=== PATIENT | male | born 1995 | race American Indian/Alaskan Native ===

== ENCOUNTER 2017-11-24 19:13 | Emergency (ER) | payer MEDICAID, OTHER, SELFPAY ==
[2017-11-24 19:21] VITALS: BP 113/67; PULSE 80; RESP 18; TEMP 37.1; O2SAT 98; BMI 29.0
--- NOTE | 2017-11-24 20:10 | PC.NURSE ---
Patient had tonsilectoy a week and half ago. started bleeding a couple hours ago. clot visible in throat.
--- NOTE | 2017-11-24 21:26 | ED_ITS ---
HPI - URI/Sore Throat General Chief Complaint: Upper Respiratory Symptoms Stated Complaint: SAYS SPITTING UP BLOOD Time Seen by Provider: 11/24/17 19:43 Source: patient and family Mode of arrival: ambulatory Limitations: no limitations History of Present Illness HPI Narrative: Patient is a 22-year-old male presents with spitting up blood. He had a tonsillectomy last week. This evening he had a piece of fried bread and started bleeding afterwards. It is intermittent it was initially stopped in the waiting room and has now restarted he is obviously spitting up blood and has a whole bowl full. He is able to talk and manage his secretions. Related Data Home Medications Medication Instructions Recorded Confirmed ibuprofen 200 mg PO TID PRN 11/24/17 11/24/17 Previous Rx's Medication Instructions Recorded meloxicam [Mobic] 7.5 mg PO BIDCC PRN #20 tab 04/24/16 doxycycline hyclate 100 mg PO Q12H #20 cap 10/17/16 Allergies Allergy/AdvReac Type Severity Reaction Status Date / Time No Known Drug Allergies Allergy Verified 11/24/17 19:24 Review of Systems Review of Systems All systems reviewed & are unremarkable except as noted in HPI and below Constitutional Denies chills, Denies fever(s), Denies lethargy and Denies weakness ENT Ears, Nose, Mouth, and Throat: Reports system reviewed and no additional complaints, except as docu Cardiovascular Denies syncope, Denies lightheadedness and Denies palpitations Respiratory Denies hemoptysis, Denies excessive phlegm production and Denies stridor Gastrointestinal Gastrointestinal: Denies abdominal pain, Denies change in bowel habits, Denies diarrhea, Denies nausea and Denies vomiting Neurologic Denies syncope and Denies weakness Endocrine Denies palpitations Hematologic/Lymphatic Denies easy bleeding and Denies easy bruising [facility] History History of tonsillectomy and adenoidectomy (Acute) Social History Smoking Status: Current every day smoker Exam Initial Vital Signs Initial Vital Signs: Vital Signs Temperature 98.7 F 11/24/17 19:21 Pulse Rate 80 11/24/17 19:21 Respiratory Rate 18 11/24/17 19:21 Blood Pressure 113/67 11/24/17 19:21 Pulse Oximetry 98 11/24/17 19:21 Const General: cooperative Nutritional Appearance: average body habitus Orientation: alert, awake and oriented x3 Other: Sitting upright in bed spitting up blood HENMT Mouth: No muffled voice Throat: uvula midline, no peritonsillar masses, posterior oropharynx abnormal, tonsils absent (Bleeding noted on the left, he is able to manage his own secretions) and no uvular edema Resp Effort & Inspection: normal respiratory effort, able to speak in complete sentences, no respiratory distress, no stridor, not tachypneic and no tripod positioning Auscultation: clear to auscultation bilaterally Cardio Rhythm: regular rhythm Heart Sounds: S1 normal and S2 normal Neuro General: alert, awake and oriented x3 Course Hospital Course: Patient rinsed with cold water site noted to be on the left Afrin and cotton ball applied however still bleeding. Dr. Cabrera at bedside to further manage patient. He is able to get the bleeding to stop with silver nitrate. Patient will follow up as needed. Consultations Consultation #1: Dr. Cabrera consult in regards to of post tonsillectomy bleeding. Recommend Afrin and cotton ball is site of bleeding can be identified he will be in the ED for evaluation. Vital Signs - 8 hr 11/24/17 19:21 11/24/17 21:37 Temperature 98.7 F Pulse Rate 80 79 Respiratory Rate 18 15 Blood Pressure 113/67 115/72 Pulse Oximetry 98 MDM - URI/Sore Throat MDM Narrative Medical decision making narrative: Posttonsillectomy hemorrhage now under control. Patient is not dizzy lightheaded or short of breath. Discharge Plan Departure Patient Disposition: Home, Self-Care Clinical Impression: Hemorrhage following tonsillectomy and adenoidectomy Discharge Date/Time: 11/24/17 21:39 Interventions: ED Discharge Assessment Last Done: 11/24/17 21:37 Instructions: DI for Tonsillectomy-Adult Activity Restrictions/Additional Instructions: *You have been diagnosed with postoperative bleeding *What to do: No harder sharp food, liquids and soft foods *Take medications as directed *Follow up with your primary care provider in 2-3 days, follow up with ENT, Dr. Cabrera for Dr. Mccormick next week *Return to ER if you should have increased bleeding or any new, worsening or concerning symptoms Prescriptions: No Action meloxicam [Mobic] 7.5 MG tablet 7.5 mg PO BIDCC PRNQty: 20 RF: 0 doxycycline hyclate 100 MG capsule 100 mg PO Q12H Qty: 20 RF: 0 ibuprofen 200 mg Capsule 200 mg PO TID PRN (Reason: Pain, Moderate) RF: 0 Referrals: Riley Mccormick MD [Physician] - Phuc Cabrera MD [Physician] -
[2017-11-24 21:37] VITALS: BP 115/72; PULSE 79; RESP 15
--- NOTE | 2017-11-25 04:26 | CONS_ITS ---
DATE OF SERVICE: 11/24/2017 CHIEF COMPLAINT: Bleeding, POD #9, status post tonsillectomy. HISTORY OF PRESENT ILLNESS: A 22-year-old male underwent uneventful tonsillectomy by Dr. Abel Mccormick, 11/2014, with prior recurrent left peritonsillar abscess as the indication. Healing evidently was uneventful until 3 p.m. this afternoon, spontaneous significant bleeding, possibly 1-2 cups of bright red blood. He presented to [facility] emergency room. Additional bleeding intermittently there. I was called for evaluation. Otherwise, pain is controlled. No other ENT complaints. He admits to eating fried bread prior to the onset of bleeding. MEDICATIONS: Reviewed on the nursing intake forms. PAST MEDICAL HISTORY: Reviewed on the nursing intake forms. ALLERGIES: REVIEWED SOCIAL HISTORY: Reviewed on the nursing intake forms. REVIEW OF SYSTEMS: Reviewed on the nursing intake forms. FAMILY HISTORY: Reviewed on the nursing intake forms. PHYSICAL EXAM: VITAL SIGNS: On the chart, well-developed, well-nourished male sitting upright on the cot. Alert and oriented. HEENT: Alert and oriented. Head is normocephalic, atraumatic. External ears are normal. External nose is normal. Oropharynx: He has bright red blood and clot with tonsillar fossa but primarily on the left. Neck is soft, nontender. PROCEDURE: Control of post-tonsillectomy hemorrhage under local anesthesia. PREOPERATIVE DIAGNOSIS: Post-tonsillectomy hemorrhage. POSTOPERATIVE DIAGNOSIS: Post-tonsillectomy hemorrhage. SURGEON: Phuc Cabrera MD ANESTHESIA: Local. ESTIMATED BLOOD LOSS: 15 mL. FINDINGS: 1-mm arterial bleeder, left superior tonsillar fossa, controlled. Some generalized mucosal irritation on the right tonsillar fossa, but no significant bleeding. COMPLICATIONS: None. INDICATIONS: As above. DESCRIPTION OF PROCEDURE: Following verbal consent, Afrin on cotton was used to remove some of the clot, followed by suction. Eventually the bleeding source was identified and 1% lidocaine, 1:100,000 epinephrine was injected directly into that area. Silver nitrate over several passes was used to deeply cauterize the area, and I could not promote bleeding afterward. He tolerated this well without known complication. ASSESSMENT: POD #9, post-tonsillectomy hemorrhage, status post control under local. PLAN: He will contact us with any further bleeding and understands the strict importance of entirely soft diet. He understands the fried bread may have scratched the tonsillar fossa and promoted bleeding. The patient agrees with the plan, understands, and is appreciative. Tello Ulloa - LISA/aristides/blair doc#: [id number]/job#: [id number] dd: 11/24/2017 21:33:00 dt: 11/25/2017 04:04:00 DICTATING MD/COPIES TO: Phuc Cabrera MD ; [facility] ; Unknown COPIES MNE: MICHELET ; [facility] ; EMY
--- NOTE | 2017-11-25 07:44 | OP_ITS ---
DATE OF SERVICE: 11/24/2017 PROCEDURE: Control of post-tonsillectomy hemorrhage under local anesthesia. PREOPERATIVE DIAGNOSIS: Post-tonsillectomy hemorrhage. POSTOPERATIVE DIAGNOSIS: Post-tonsillectomy hemorrhage. SURGEON: Phuc Cabrera MD ANESTHESIA: Local. ESTIMATED BLOOD LOSS: 15 mL. FINDINGS: 1-mm arterial bleeder, left superior tonsillar fossa, controlled. Some generalized mucosal irritation on the right tonsillar fossa, but no significant bleeding. COMPLICATIONS: None. INDICATIONS: As above. DESCRIPTION OF PROCEDURE: Following verbal consent, Afrin on cotton was used to remove some of the clot, followed by suction. Eventually the bleeding source was identified and 1% lidocaine, 1:100,000 epinephrine was injected directly into that area. Silver nitrate over several passes was used to deeply cauterize the area, and I could not promote bleeding afterward. He tolerated this well without known complication. ASSESSMENT: POD #9, post-tonsillectomy hemorrhage, status post control under local. PLAN: He will contact us with any further bleeding and understands the strict importance of entirely soft diet. He understands the fried bread may have scratched the tonsillar fossa and promoted bleeding. The patient agrees with the plan, understands, and is appreciative. Tello Ulloa - LISA/aristides/blair doc#: [id number]/job#: [id number] dd: 11/24/2017 21:33:00 dt: 11/25/2017 04:22:00 DICTATING MD/COPIES TO: Phuc Cabrera MD ; [facility] COPIES MNE: MICHELET ; [facility]
== END 2017-11-24 21:39 | disposition home or self-care (01) ==
PROVIDERS: Emergency Provider Emergency Medicine; Family Provider Family Medicine; PCP Family Medicine
DX: J95.830 Postprocedural hemorrhage of a respiratory system organ or structure following a respiratory system procedure (principal)
CPT/HCPCS: 99282

== ENCOUNTER 2019-02-21 18:43 | Emergency (ER) | payer MEDICAID, OTHER, SELFPAY ==
[2019-02-21 18:45] VITALS: BP 131/93; PULSE 72; RESP 18; TEMP 37.2; O2SAT 99
--- NOTE | 2019-02-21 18:54 | ED.SKABFB ---
HPI - Skin/Abscess/Foreign Bdy General Chief complaint: Skin/Abscess/Foreign Body Stated complaint: right leg is swelling, thinks spider bite Time Seen by Provider: 02/21/19 18:47 Source: patient Mode of arrival: ambulatory Limitations: no limitations History of Present Illness HPI narrative: Patient is a 23-year-old male here for evaluation of area of redness to the outside of his right lower extremity. He states yesterday he noticed that it was a little red and today it started to drain a small amount of purulent material. He states that he has never had any thing like this in the past. Related Data Home Medications Medication Instructions Recorded Confirmed buprenorphine-naloxone [Suboxone] 1 film SUBLINGUAL DAILY 02/21/19 02/21/19 Previous Rx's Medication Instructions Recorded sulfamethoxazole-trimethoprim 1 tab PO BID 5 Days #10 tab 02/21/19 [Bactrim DS] Allergies Allergy/AdvReac Type Severity Reaction Status Date / Time No Known Drug Allergies Allergy Verified 02/21/19 18:55 Review of Systems Constitutional Denies fever(s) ENT Ears, Nose, Mouth, and Throat: Denies disequilibrium Musculoskeletal Denies myalgias, Denies arthralgias and Denies tingling Integumentary/Breasts Comments: Area of draining and redness to his right ankle Neurologic Denies tingling and Denies disequilibrium Hematologic/Lymphatic Denies easy bleeding and Denies easy bruising [facility] Medical History (Updated 02/21/19 @ 23:13 by Sandip Bullock DO) Patient denies medical problems (Acute) Surgical History (Updated 11/25/17 @ 02:57 by Nicky Bey DO) History of tonsillectomy and adenoidectomy (Acute) Social History Smoking Status: Current every day smoker Social History Smoking Status: Current every day smoker Exam Initial Vital Signs Initial Vital Signs: Vital Signs Temperature 99.0 F 02/21/19 18:45 Pulse Rate 72 02/21/19 18:45 Respiratory Rate 18 02/21/19 18:45 Blood Pressure 131/93 H 02/21/19 18:45 Pulse Oximetry 99 02/21/19 18:45 Resp Effort & Inspection: normal respiratory effort Cardio Pulses: dorsalis pedis present Skin Other: Patient with a 2 cm area of induration with a central area of draining on the lateral aspect of his right lower extremity just proximal to the ankle. Has a larger surrounding area of redness and warmth. Neuro General: alert and awake Cognition: normal cognition Speech: speech normal Extrem Other: No pain with movement of the right ankle Psych Appearance: grossly normal and well kempt Procedures Abscess I/D Site: lower extremity Side (if applicable): right Local Anesthetic: lidocaine 1% Amount of anesthesia used (mL): 4 Technique: incised with #11 blade Packing used?: none Course Orders Ordered: Discontinued Medications Lidocaine HCl (Xylocaine 1% (Pf)) 4 ml INJ NOW ONE Stop: 02/21/19 18:55 Last Admin: 02/21/19 18:58 Dose: 4 ml Vital Signs - 8 hr 02/21/19 18:45 Temperature 99.0 F Pulse Rate 72 Respiratory Rate 18 Blood Pressure 131/93 H Pulse Oximetry 99 MDM - Skin/Abscess/Foreign Bdy MDM Narrative Medical decision making narrative: Bedside ultrasound did show very small area of what appeared to be abscess over the induration. This was I and D does described above. There was a very small amount of purulent material. Given the surrounding erythema will start him on antibiotics. He was given care instructions and return precautions. He expressed understanding and agreement plan. Discharge Plan Departure Patient Disposition: Home Clinical Impression: Cellulitis Qualifiers: Site of cellulitis: extremity Site of cellulitis of extremity: lower extremity Laterality: right Qualified Code(s): L03.115 - Cellulitis of right lower limb Abscess of skin or subcutaneous tissue Qualifiers: Site of cutaneous abscess: extremity Site of cutaneous abscess of extremity: lower extremity Laterality: right Qualified Code(s): L02.415 - Cutaneous abscess of right lower limb Discharge Date/Time: 02/21/19 19:19 Interventions: ED Discharge Assessment Last Done: 02/21/19 19:19 Instructions: DI for Incision and Drainage of a Skin Abscess, DI for Skin Abscess Activity Restrictions/Additional Instructions: Take the antibiotics as directed. You can shower like normal. You can use soap and water like normal. Return to the emergency department for any new or worsening symptoms Prescriptions: New sulfamethoxazole-trimethoprim [Bactrim DS] 800-160 mg tablet 1 tab PO BID 5 Days Qty: 10 RF: 0 No Action buprenorphine-naloxone [Suboxone] 8-2 mg film 1 film sublingual DAILY RF: 0
[2019-02-21] MEDS: LIDOCAINE 1% (PF) INJ 4 ML INJ (18:58)
== END 2019-02-21 19:19 | disposition home or self-care (01) ==
PROVIDERS: Emergency Provider Emergency Medicine
DX: L03.115 Cellulitis of right lower limb (principal); L02.415 Cutaneous abscess of right lower limb
CPT/HCPCS: 10060; 99282

== ENCOUNTER 2019-03-07 14:14 | Emergency (ER) | payer MEDICAID, OTHER, SELFPAY ==
[2019-03-07 14:20] VITALS: BP 116/71; PULSE 80; RESP 16; TEMP 36.7; O2SAT 100
== END 2019-03-07 16:47 | disposition left against medical advice (07) ==
PROVIDERS: Emergency Provider Emergency Medicine
DX: S81.811A Laceration without foreign body, right lower leg, initial encounter (principal)
CPT/HCPCS: 99281

== ENCOUNTER 2019-05-05 13:31 | Emergency (ER) | payer OTHER, SELFPAY ==
[2019-05-05 13:47] VITALS: BP 110/66; PULSE 76; RESP 16; TEMP 37; O2SAT 97; BMI 30.2
--- NOTE | 2019-05-05 14:27 | DI.RAD.S_ITS ---
PROCEDURE: XR FINGER LT MIN 2V INDICATIONS: sea urchin injury TECHNIQUE: AP hand, 2 views of the index (2nd) finger(s) acquired. COMPARISON: [facility], , FINGER LT, 10/17/2016, 4:34. FINDINGS: Bones: No displaced fracture or dislocation is identified involving the left hand. No significant degenerative changes are appreciated. No suspicious osseous lesions are identified. Soft tissues: No suspicious soft tissue calcifications. Soft tissue swelling involving the index finger is identified, best appreciated on the radial-dorsal aspect of the proximal interphalangeal joint. No unexpected radiopaque foreign bodies are identified. IMPRESSION: 1. No acute fracture of the left hand. 2. Soft tissue swelling of the index finger. No radiopaque foreign bodies are evident. Dictated by: Tylor Campbell M.D. on 05/05/2019 at 14:06 Approved by: Tylor Campbell M.D. on 05/05/2019 at 14:07
[2019-05-05 15:02] LABS: Add Manual Diff / Slide Review NO; Basophils Absolute Auto 0 /uL (0-100); Basophils Percent Auto 0.4 % (0-2); Eosinophils Absolute Auto 100 /uL (0-450); Eosinophils Percent Auto 0.8 % (2-4); Hematocrit 39.2 % (41-53); Hemoglobin 13.2 g/dL (13.5-17.5); Lymphocytes Absolute Auto 1600 /uL (1100-4500); Mean Corpuscular HGB Conc 33.5 % (30-36); Mean Corpuscular Hemoglobin 26.8 PG (26-34); Monocytes Absolute Auto 600 /uL (0-900); Monocytes Percent Auto 6.9 % (3-14); Neutrophils Absolute Auto 6600 /uL (1500-7000); Neutrophils Percent Auto 73.9 % (50-75); Platelet Count 235 X10^3/uL (150-400); Red Cell Distribution Width 14.4 % (11.6-14.8)
[2019-05-05 15:43] LABS: Alanine Aminotransferase 48 IU/L (<50); Albumin 4.4 g/dL (3.5-5.0); Albumin Globulin Ratio 1.2 (1.0-2.8); Alkaline Phosphatase 116 U/L (38-126); Aspartate Aminotransferase 50 IU/L (17-59); BUN Creatinine Ratio 17.1 (6-22); Bilirubin Total 0.6 mg/dL (0.2-1.3); Blood Urea Nitrogen 12 mg/dL (9-20); C-Reactive Protein Quant 6.9 mg/dL (<1.0); Carbon Dioxide 25 mmol/L (22-32); Chloride 103 mmol/L (98-107); Estimated Glomerular Filt Rate > 60.0 mL/min (>60); Globulin 3.6 g/dL (1.7-4.1); Glucose 90 mg/dL (70-100); HEMOLYSIS < 15 (0-50); Potassium 4.2 mmol/L (3.4-5.1); Sodium 137 mmol/L (137-145)
[2019-05-05 15:55] LABS: Erythrocyte Sedimentation Rate 48 MM/HR (0-15)
--- NOTE | 2019-05-05 16:03 | ED_ITS ---
HPI - Extremity Injury (Upper) <MILE Schreiber - Last Filed: 05/05/19 19:41> General Chief Complaint: Extremity Injury, Upper Stated Complaint: Stung by sea urchin on left hand Time Seen by Provider: 05/05/19 14:05 Source: patient Mode of arrival: Ambulatory Limitations: no limitations History of Present Illness HPI narrative: The patient is a 23-year-old male current everyday smoker who presents with a chief complaint of his infection not getting any better. He states he was stung by see her chin on Tuesday, was seen at the walk-in clinic on Tuesday. He was supposed to start taking 750 mg Cipro b.i.d., but started once a day. He comes in today for any redness down his left 2nd digit he denies any fevers nausea vomiting or diarrhea. He has not taken anything for pain. Related Data Previous Rx's Medication Instructions Recorded ciprofloxacin HCl 750 mg tablet 750 mg PO BID 10 Days #20 tab 05/03/19 doxycycline hyclate 100 mg PO BID #20 cap 05/05/19 Allergies Allergy/AdvReac Type Severity Reaction Status Date / Time No Known Drug Allergies Allergy Verified 05/05/19 13:47 Review of Systems <MILE Schreiber - Last Filed: 05/05/19 19:41> Review of Systems Narrative: GENERAL: Denies chills, fatigue, malaise, fever, sweats. HEENT: Denies sinus pain, ear pain, sore throat, difficulty swallowing, dizziness. RESPIRATORY: Denies dyspnea, cough, wheezing, hemoptysis, sputum. CARDIOVASCULAR: Denies chest pain, palpitations, orthopnea, edema, GASTROINTESTINAL: Denies nausea, vomiting, abdominal pain, diarrhea, constipation, melena. : Denies dysuria, frequency, incontinence, hematuria, urinary retention. MUSCULOSKELETAL: See HPI SKIN: He HPI NEUROLOGIC: Denies weakness, headache, numbness, change in speech, confusion, seizures, incoordination. PSYCHIATRIC: No concerning psychosocial issues. 12 point review of systems is negative except for those stated above Patient History <MILE Schreiber - Last Filed: 05/05/19 19:41> Medical History Patient denies medical problems (Acute) Surgical History History of tonsillectomy and adenoidectomy (Acute) Social History Smoking Status: Current every day smoker alcohol intake frequency: 0-2 drinks per day Substance Use Type: does not use Exam <MILE Schreiber - Last Filed: 05/05/19 19:41> Narrative Exam Narrative: GENERAL: This is a well-nourished, well-developed patient, no acute distress HEAD: Atraumatic. Normocephalic. No temporal or scalp tenderness. EYES: Pupils equal round and reactive. Extraocular motions intact. No scleral icterus. No injection or drainage. ENT: Nose without bleeding, purulent drainage or septal hematoma. Throat without erythema, tonsillar hypertrophy or exudate. Uvula midline. Airway patent. NECK: Trachea midline. No JVD or lymphadenopathy. Supple, nontender, no meningeal signs. CARDIOVASCULAR: Regular rate and rhythm RESPIRATORY: no cough. No increased respiratory effort accessory muscle use. GASTROINTESTINAL: Abdomen soft, non-tender, nondistended. No hepato- splenomegaly, or palpable masses. No guarding. EXTREMITIES: Diffuse swelling noted left 2nd digit. Capillary refill less than 2 seconds. Able to flex and extend left 2nd digit against resistance. Able to make fist with left hand. Positive radial pulse. Diffuse erythema noted entire length of digit, down to 4 cm below digit on dorsum of hand. No obvious drainage noted. No noted abscesses or pustules. BACK: Nontender without deformity or crepitance. No flank tenderness. NEURO: AOx3. SKIN: See HPI Initial Vital Signs Initial Vital Signs: Vital Signs Temperature 98.6 F 05/05/19 13:47 Pulse Rate 76 05/05/19 13:47 Respiratory Rate 16 05/05/19 13:47 Blood Pressure 110/66 05/05/19 13:47 Pulse Oximetry 97 05/05/19 13:47 <Anu Carmichael DO - Last Filed: 05/08/19 07:25> Initial Vital Signs Initial Vital Signs: Vital Signs Temperature 98.6 F 05/05/19 13:47 Pulse Rate 76 05/05/19 13:47 Respiratory Rate 16 05/05/19 13:47 Blood Pressure 110/66 05/05/19 13:47 Pulse Oximetry 97 05/05/19 13:47 Course <MILE Schreiber - Last Filed: 05/05/19 19:41> Orders Ordered: ED Orders 05/05/19 14:27 XR finger LT min 2V Stat 05/05/19 14:51 C-Reactive Protein Quant Stat Complete Blood Count AUTO DIFF Stat Comprehensive Metabolic Panel Stat Erythrocyte Sedimentation Rate Stat Vital Signs Vital signs: Vital Signs - 8 hr 05/05/19 13:47 Temperature 98.6 F Pulse Rate 76 Respiratory Rate 16 Blood Pressure 110/66 Pulse Oximetry 97 <Anu Carmichael DO - Last Filed: 05/08/19 07:25> Orders Ordered: ED Orders 05/05/19 14:27 XR finger LT min 2V Stat 05/05/19 14:51 C-Reactive Protein Quant Stat Complete Blood Count AUTO DIFF Stat Comprehensive Metabolic Panel Stat Erythrocyte Sedimentation Rate Stat Vital Signs Vital signs: Vital Signs - 8 hr 05/05/19 13:47 Temperature 98.6 F Pulse Rate 76 Respiratory Rate 16 Blood Pressure 110/66 Pulse Oximetry 97 MDM - Extremity Injury (Upper) <MILE Schreiber - Last Filed: 05/05/19 19:41> Lab Data Result diagrams: 05/05/19 14:51 05/05/19 14:51 Labs: Lab Results 05/05/19 05/05/19 Range/Units 14:51 14:51 WBC 9.0 (4.5-11.0) X10^3/uL RBC 4.90 (4.5-5.9) X10^6/uL Hgb 13.2 L (13.5-17.5) g/dL Hct 39.2 L (41-53) % MCV 80.0 (80-100) fL MCH 26.8 (26-34) PG MCHC 33.5 (30-36) % RDW 14.4 (11.6-14.8) % Plt Count 235 (150-400) X10^3/uL Neut % (Auto) 73.9 (50-75) % Lymph % (Auto) 18.0 L (25-40) % Alfalfa % (Auto) 6.9 (3-14) % Eos % (Auto) 0.8 L (2-4) % Baso % (Auto) 0.4 (0-2) % Neut # (Auto) 6600 (8972-4719) /uL Lymph # (Auto) 1600 (3545-1402) /uL Alfalfa # (Auto) 600 (0-900) /uL Eos # (Auto) 100 (0-450) /uL Baso # (Auto) 0 (0-100) /uL ESR 48 H (0-15) MM/HR Sodium 137 (137-145) mmol/L Potassium 4.2 (3.4-5.1) mmol/L Chloride 103 (98-107) mmol/L Carbon Dioxide 25 (22-32) mmol/L BUN 12 (9-20) mg/dL Creatinine 0.70 (0.66-1.25) mg/dL Estimated GFR > 60.0 (>60) mL/min BUN/Creatinine Ratio 17.1 (6-22) Glucose 90 (70-100) mg/dL Calcium 9.0 (8.4-10.2) mg/dL Total Bilirubin 0.6 (0.2-1.3) mg/dL AST 50 (17-59) IU/L ALT 48 (<50) IU/L Alkaline Phosphatase 116 (38-126) U/L C-Reactive Protein 6.9 H (<1.0) mg/dL Total Protein 8.0 (6.3-8.2) g/dL Albumin 4.4 (3.5-5.0) g/dL Globulin 3.6 (1.7-4.1) g/dL Albumin/Globulin Ratio 1.2 (1.0-2.8) Imaging Data Finger x-ray: Radiologist's impression: [address] [address] XRay Report Signed Patient: Tello Ulloa JMR#: [id number] : 1995Acct:[id number] Age/Sex: 23 / MDate of Service: 05/05/19 Loc: ED Accession Number: [id number] Procedure: XR finger LT min 2V Ordering Provider: Anu Franco [facility] PROCEDURE: XR FINGER LT MIN 2V INDICATIONS: sea urchin injury TECHNIQUE: AP hand, 2 views of the index (2nd) finger(s) acquired. COMPARISON: [facility], CR, FINGER LT, 10/17/2016, 4:34. FINDINGS: Bones: No displaced fracture or dislocation is identified involving the left hand. No significant degenerative changes are appreciated. No suspicious osseous lesions are identified. Soft tissues: No suspicious soft tissue calcifications. Soft tissue swelling involving the index finger is identified, best appreciated on the radial-dorsal aspect of the proximal interphalangeal joint. No unexpected radiopaque foreign bodies are identified. IMPRESSION: 1. No acute fracture of the left hand. 2. Soft tissue swelling of the index finger. No radiopaque foreign bodies are evident. Dictated by: Tylor Campbell M.D. on 05/05/2019 at 14:06 Approved by: Tylor Campbell M.D. on 05/05/2019 at 14:07 MDM Narrative Medical decision making narrative: The patient is a 23-year-old male who presen with a chief complaint of continued redness and swelling of his finger. He was seen at the walk-in clinic 2 days ago started on ciprofloxacin b.i.d.. However he has been only taking it once a day. X-ray shows no acute fracture, he has no leukocytosis on labs. He does have slightly elevated inflammatory markers which out expect given his presenting complaint. The patient is afebrile and has no signs of systemic illness. Given that patient has been on antibiotics for sea urchin spike, I spoke with Dr. Carmichael who recommended switching him to doxycycline. The patient states that he has follow-up care as scheduled on Tuesday, and I discussed this importance of keeping that appointment being evaluated. I discussed monitor for signs and symptoms of systemic infection including fever, inability to move finger etc. The patient has relatively full range of motion of his finger and no signs of neurovascular compromise, so I am not suspicious of tenosynovitis at this point time. Discussed at length return precautions and follow-up care with patient. Patient has no questions or concerns upon discharge and states understanding of return precautions as well as follow-up care. <Anu Carmichael, - Last Filed: 05/08/19 07:25> Lab Data Labs: Lab Results 05/05/19 05/05/19 Range/Units 14:51 14:51 WBC 9.0 (4.5-11.0) X10^3/uL RBC 4.90 (4.5-5.9) X10^6/uL Hgb 13.2 L (13.5-17.5) g/dL Hct 39.2 L (41-53) % MCV 80.0 (80-100) fL MCH 26.8 (26-34) PG MCHC 33.5 (30-36) % RDW 14.4 (11.6-14.8) % Plt Count 235 (150-400) X10^3/uL Neut % (Auto) 73.9 (50-75) % Lymph % (Auto) 18.0 L (25-40) % Alfalfa % (Auto) 6.9 (3-14) % Eos % (Auto) 0.8 L (2-4) % Baso % (Auto) 0.4 (0-2) % Neut # (Auto) 6600 (4948-1897) /uL Lymph # (Auto) 1600 (0945-7511) /uL Alfalfa # (Auto) 600 (0-900) /uL Eos # (Auto) 100 (0-450) /uL Baso # (Auto) 0 (0-100) /uL ESR 48 H (0-15) MM/HR Sodium 137 (137-145) mmol/L Potassium 4.2 (3.4-5.1) mmol/L Chloride 103 (98-107) mmol/L Carbon Dioxide 25 (22-32) mmol/L BUN 12 (9-20) mg/dL Creatinine 0.70 (0.66-1.25) mg/dL Estimated GFR > 60.0 (>60) mL/min BUN/Creatinine Ratio 17.1 (6-22) Glucose 90 (70-100) mg/dL Calcium 9.0 (8.4-10.2) mg/dL Total Bilirubin 0.6 (0.2-1.3) mg/dL AST 50 (17-59) IU/L ALT 48 (<50) IU/L Alkaline Phosphatase 116 (38-126) U/L C-Reactive Protein 6.9 H (<1.0) mg/dL Total Protein 8.0 (6.3-8.2) g/dL Albumin 4.4 (3.5-5.0) g/dL Globulin 3.6 (1.7-4.1) g/dL Albumin/Globulin Ratio 1.2 (1.0-2.8) Discharge Plan Departure Patient Disposition: Home Clinical Impression: Cellulitis of finger of left hand Discharge Date/Time: 05/05/19 16:12 Instructions: DI for Cellulitis -- Adult Activity Restrictions/Additional Instructions: I sent a prescription of doxycycline to [facility]. Please take this twice a day. Please follow up with your primary care provider for wound evaluation on Tuesday. Please come back to the emergency department for any acute concerns such as decreased circulation her finger tip, fever, inability keep down fluids Prescriptions: New doxycycline hyclate 100 mg capsule 100 mg PO BID Qty: 20 RF: 0 No Action ciprofloxacin HCl 750 mg tablet 750 mg PO BID 10 Days Qty: 20 RF: 0
== END 2019-05-05 16:12 | disposition home or self-care (01) ==
PROVIDERS: Emergency Provider Nurse Practitioner Family
DX: L03.012 Cellulitis of left finger (principal); Y99.0 Civilian activity done for income or pay
CPT/HCPCS: 36415; 73140; 80053; 85025; 85651; 86140; 99282; 99284

== ENCOUNTER 2020-12-21 02:27 | Emergency (ER) | payer MEDICAID, OTHER, SELFPAY ==
[2020-12-21 02:36] VITALS: BMI 30.7
--- NOTE | 2020-12-21 02:55 | DI.RAD.S_ITS ---
PROCEDURE: XR FOOT RT MIN 3V INDICATIONS: pain injury TECHNIQUE: 3 views of the foot were acquired. COMPARISON: None. FINDINGS: Bones: No fractures or dislocations. No suspicious bony lesions. Soft tissues: No tibiotalar joint effusion. Achilles tendon appears normal. IMPRESSION: No evidence acute bony abnormality of the right foot Comment: Final report is concordant with preliminary interpretation provided by [facility]. Dictated by: Osmin Carter M.D. on 12/21/2020 at 6:37 Approved by: Osmin Carter M.D. on 12/21/2020 at 6:37
--- NOTE | 2020-12-21 02:55 | DI.RAD.S_ITS ---
PROCEDURE: XR CALCANEOUS RT MIN 2V INDICATIONS: pain injury TECHNIQUE: Two views of the calcaneus were acquired. COMPARISON: None. FINDINGS: Bones: No fractures or dislocations. No suspicious bony lesions. Soft tissues: No suspicious calcifications. Achilles tendon appears normal. IMPRESSION: No evidence acute bony abnormality of the calcaneus Comment: Final report is concordant with preliminary interpretation provided by [facility]. Dictated by: Osmin Carter M.D. on 12/21/2020 at 6:36 Approved by: Osmin Carter M.D. on 12/21/2020 at 6:36
[2020-12-21] MEDS: LIDOCAINE 1% (PF) 4 ML SUBCUT (03:03)
--- NOTE | 2020-12-21 03:23 | ED_ITS ---
HPI - Extremity Injury (Upper) General Chief Complaint: Extremity Injury, Upper Stated Complaint: left thumb is swollen has pus in it/pain Time Seen by Provider: 12/21/20 02:37 Source: patient Mode of arrival: Ambulatory Limitations: no limitations History of Present Illness HPI narrative: Patient is a 25-year-old male who presents with a variety of complaints is the 1st being left thumb swelling. He denies any injury but noticed that there was some swelling and pain around the nail and the distal tip. He does a lot of crabbing. He says he just noticed it today and throughout the day it got significantly more swollen and painful. No erythema or streaking no fever. He also complains of right foot and heel pain. He went [place] [employer] [place] where he may have injured his right foot and heel. He is able to hobble but it does hurt. Related Data Previous Rx's Medication Instructions Recorded doxycycline hyclate 100 mg PO BID #20 cap 05/05/19 cephalexin 500 mg PO TID 7 Days #21 cap 12/21/20 Allergies Allergy/AdvReac Type Severity Reaction Status Date / Time No Known Drug Allergies Allergy Verified 05/05/19 13:47 Review of Systems Review of Systems Narrative: GENERAL: Denies chills,fever HEENT: Denies throat pain RESPIRATORY: Denies dyspnea, cough, wheezing CARDIOVASCULAR: Denies chest pain, palpitations GASTROINTESTINAL: Denies nausea, vomiting MUSCULOSKELETAL: Right foot pain and heel pain, see HPI SKIN: Left thumb swelling NEUROLOGIC: Denies weakness, dizziness, headache, numbness 8 point review of systems is negative except for those stated above and HPI Patient History Medical History (Updated 12/21/20 @ 03:29 by Nicky Bey DO) Patient denies medical problems Surgical History History of tonsillectomy and adenoidectomy Social History Smoking Status: Current every day smoker Smoking Status: Current every day smoker tobacco type: cigarettes alcohol intake frequency: a few times a month Substance Use Type: does not use Exam Initial Vital Signs Initial Vital Signs: Vital Signs Pulse Rate 63 12/21/20 03:58 Respiratory Rate 14 12/21/20 03:58 Blood Pressure 127/90 12/21/20 03:58 Pulse Oximetry 99 12/21/20 03:58 GENERAL: Well-appearing, well-nourished and in no acute distress. CARDIOVASCULAR: peripheral pulses in tact, cap refill <2 sec RESPIRATORY: No respiratory distress, speaks in full sentences without difficulty EXTREMITIES: Normal range of motion, no clubbing or edema. Neurovascularly intact Right separator tender on heel and arch some midfoot tenderness distal pedal pulse intact no ankle pain NEUROLOGICAL: Cranial nerves II through XII grossly intact. Normal gait and speech. SKIN: Left thumb bilateral paronychia noted swelling noted no erythema cap refill less than 2 seconds Procedures Abscess I/D I&D #1: Site: hand Side (if applicable): left (thumb) Local Anesthetic: lidocaine 1% Amount of anesthesia used (mL): 4 Technique: incised with #11 blade Amount of fluid expressed (mL): 1 Irrigation: No Packing used?: none Complications: pain and bleeding Nerve Block Nerve Block 1: Time out performed: Yes Local Anesthetic: lidocaine 1% Amount of anesthesia used (mL): 4 Side: left Nerve Blocks: digital Procedure Successful: Yes Patient Tolerated Procedure: Well Complications: none Course Orders Ordered: ED Orders 12/21/20 02:55 XR calcaneus RT min 2V Stat XR foot RT min 3V Stat Discontinued Medications Ibuprofen (Ibuprofen 400 Mg Tablet) 800 mg PO NOW ONE Stop: 12/21/20 03:26 Last Admin: 12/21/20 03:29 Dose: 800 mg Documented by: Lidocaine HCl (Lidocaine 1% (Pf)) 4 ml SUBCUT NOW ONE Stop: 12/21/20 02:56 Last Admin: 12/21/20 03:03 Dose: 4 ml Documented by: MELISSA Vital Signs Vital signs: Vital Signs - 8 hr 12/21/20 03:58 Pulse Rate 63 Respiratory Rate 14 Blood Pressure 127/90 Pulse Oximetry 99 MDM - Extremity Injury (Upper) Imaging Data Extremity x-ray #1: Radiologist's Impression: Right calcaneus preliminary report normal Extremity x-ray #2: Radiologist's Impression: Right foot preliminary report no fracture MDM Narrative Medical decision making narrative: Patient has obvious paronychia which improved with I and D,. He is given antibiotics with working with crabbing. Foot is sprained without fracture. Discharge Plan Departure Patient Disposition: Home Clinical Impression: Acute paronychia of left thumb Right foot sprain Qualifiers: Encounter type: initial encounter Qualified Code(s): S93.601A - Unspecified sprain of right foot, initial encounter Instructions: [facility] DI for Foot Sprain Activity Restrictions/Additional Instructions: *You have been diagnosed with paronychia of left thumb with right foot strain *What to do: Keep some clean and dry with soap water only. You should start to feel better now that there has been drainage. Please continue to monitor for i nfection. May take off the dressing tomorrow afternoon Your foot does not show any broken bones. Increase activity as tolerated may weightbear as tolerated or use crutches as needed *Continue to take medications as directed Motrin at 800 mg every 8 hours if needed for [id number] pain Keflex 500 mg 3 times a day for 7 days--> start tomorrow *Follow up with your primary care provider in 2-3 days *Return to ER if you should have redness pus swelling of the left thumb decreased range of motion of left thumb, increased pain on right foot or any new, worsening or concerning symptoms Prescriptions: New cephalexin 500 mg capsule 500 mg PO TID 7 Days Qty: 21 RF: 0 No Action doxycycline hyclate 100 mg capsule 100 mg PO BID Qty: 20 RF: 0
[2020-12-21] MEDS: IBUPROFEN 400 MG TABLET 800 MG PO (03:29)
[2020-12-21 03:58] VITALS: BP 127/90; PULSE 63; RESP 14; O2SAT 99
== END 2020-12-21 03:59 | disposition home or self-care (01) ==
PROVIDERS: Emergency Provider Emergency Medicine
DX: L03.012 Cellulitis of left finger (principal); S93.601A Unspecified sprain of right foot, initial encounter
CPT/HCPCS: 10060; 64450; 73630; 73650; 99283

== ENCOUNTER 2025-05-20 18:58 | Emergency (ER) | payer MEDICAID, SELFPAY ==
[2025-05-20 19:04] VITALS: BP 139/94; PULSE 78; RESP 18; TEMP 36.8; O2SAT 98; BMI 39.4
--- NOTE | 2025-05-20 20:27 | ED_ITS ---
HPI - Dental/Oral General Chief complaint: Dental/Oral Stated complaint: Dental pain lower jaw since this AM Time Seen by Provider: 05/20/25 20:26 Source: patient, RN notes reviewed and old records reviewed Mode of arrival: Ambulatory Limitations: no limitations History of Present Illness HPI Narrative: 29-year-old male with a complaint of right lower dental pain intermittently notes he chipped his tooth 2 weeks ago. Patient states he has started having pain this evening lower jaw at tooth number 26 he does have a chip the tooth but does not extend down into the gingiva. He has not noticed any redness swelling or warmth. He has not had any fevers. No swelling in his tongue or oropharynx. No nausea or vomiting. States he has had some dental issues in the past. He does have bili to follow up with dentist through the [facility]. 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 No known drug allergies. Vapes tobacco, occasional alcohol, uses marijuana denies any other recreational drugs. He is accompanied by his girlfriend. He states he had some ibuprofen at about 6:00pm this evening which was somewhat helpful. Related Data Previous Rx's ?Medication ?Instructions ?Recorded doxycycline hyclate 100 mg capsule 100 mg PO BID #20 c aps 05/05/19 penicillin V potassium 500 mg 500 mg PO QID 10 days #4 0 tabs 05/20/25 tablet Allergies Allergy/AdvReac Type Severity Reaction Status Date / Time No Known Drug Allergies Allergy Verified 05/20/25 19:04 Review of Systems Review of Systems ROS Unobtainable: All systems reviewed & are unremarkable except as noted in HPI and below Patient History Medical History (Updated 05/20/25 @ 20:35 by Anu Carmichael DO) Patient denies medical problems Surgical History History of tonsillectomy and adenoidectomy tobacco type: cigarettes alcohol intake frequency: a few times a month Exam Narrative Exam Narrative: GEN: well nourished, well appearing man, alert and oriented x 3, patient appears to be in my distress. HEENT: Atraumatic, pupils are equal round reactive to light, extraocular movements are intact, nares are clear, there is no conjunctival pallor. Throat is clear without any exudates, erythema, tonsillar enlargement or uvular deviation, patient has poor dentition, missing several teeth tooth number 26 is present there is a small chip off the top portion but does not appear to extend into the gingiva, there has not some mild swelling but no warmth, erythema there was no fluctuance or fluid collection. There was no other swelling of the oropharynx. Patient has a normal speech. No warmth erythema or swelling of the face HEART: Regular rate and rhythm without murmur, clicks, rubs. LUNGS:Lungs clear to auscultation, no wheezes, rales, crackles, chest moves symmetrically ABD:bowel sounds normal, soft, non-tender, no guarding, rebound, rigidity, no masses noted, no hepatosplenomegaly MSCL: Full range of motion, normal gait NEURO:CN 2-12 intact, sensation normal. Initial Vital Signs Initial Vital Signs: Vital Signs Temperature 98.3 F 05/20/25 19:04 Pulse Rate 78 05/20/25 19:04 Respiratory Rate 18 05/20/25 19:04 Blood Pressure 139/94 H 05/20/25 19:04 Pulse Oximetry 98 05/20/25 19:04 Oxygen Delivery Method Room Air 05/20/25 19:04 Course Vital Signs Vital signs: Vital Signs - 8 hr 05/20/25 19:04 05/20/25 20:31 Temperature 98.3 F Pulse Rate 78 77 Respiratory Rate 18 18 Blood Pressure 139/94 H 158/80 H Pulse Oximetry 98 97 Oxygen Delivery Method Room Air Room Air MDM - Dental/Oral MDM Narrative Medical decision making narrative: 29-year-old male with dental caries, has a chipped tooth does not appear to extend into the gingiva that occurred about 2 weeks ago. Patient has a some slight swelling but no other real changes consistent with infection we will go ahead and give an oral antibiotic and have patient follow up with a dentist he defers anything for pain. Discharge Plan Departure Patient Disposition: Home Clinical Impression: Odontalgia Instructions: DI for Dental Pain Activity Restrictions/Additional Instructions: Follow up with dentist. That has possible developing dental infection a prescription for oral antibiotics was sent to [facility]. Take this until completed. You can take acetaminophen up to a 1000 mg every 6 hours and/or ibuprofen up to 600 mg every 6 hours as needed for pain. Please return if you develop swelling of your lips tongue or airway, increasing swelling or redness of your face, any difficulty with breathing or changes to voice, vomiting, fevers or other new or concerning changes. Prescriptions: New penicillin V potassium 500 mg tablet 500 mg PO QID 10 Days Qty: 40 0RF No Action doxycycline hyclate 100 mg capsule 100 mg PO BID Qty: 20 0RF Stand Alone Forms: Patient Portal/API
[2025-05-20 20:31] VITALS: BP 158/80; PULSE 77; RESP 18; O2SAT 97
== END 2025-05-20 20:39 | disposition home or self-care (01) ==
PROVIDERS: Emergency Provider Emergency Medicine
DX: K08.89 Other specified disorders of teeth and supporting structures (principal)
CPT/HCPCS: 99281